=== PATIENT | male | born 1955 | race Caucasian/White ===

== ENCOUNTER → 2021-07-29 | Outpatient (CLI) | payer BC ==
[2021-07-29 14:20] LABS: Basophils # (A) 0.04 X 10*3/uL (0.00-0.10); Basophils % (A) 1.7 %; Eosinophils # (A) 0.18 X 10*3/uL (0.04-0.35); Eosinophils % (A) 7.5 %; HGB 15.4 g/dL (13.0-17.0); Immature Grans, Automated 0 %; Lymphocytes # (A) 0.89 X 10*3/uL (0.90-5.00); Lymphocytes % (A) 36.9 %; MCH 34.8 pg (27.0-32.0); MCHC 34.2 g/dL (32.0-37.0); MCV 101.6 fL (80.0-97.0); Monocytes # (A) 0.28 X 10*3/uL (0.20-1.00); Monocytes % (A) 11.6 %; NRBC Per 100 WBC 0 /100 WBCS (0.0-0.0); Neutrophils # (A) 1.02 X 10*3/uL (1.80-7.70); Neutrophils % (A) 42.3 %; Platelet Count 200 X 10*3/uL (140-440); RBC 4.43 X 10*6/uL (4.40-5.60); RDW 12.5 % (11.5-14.5); WBC 2.41 X 10*3/uL (4.50-10.00)
[2021-07-29 14:27] LABS: African American GFR (CKD) 109.4 (60.0-200.0); Anion Gap 11.4 mmol/L (10.00-18.00); BUN/Creat Ratio 26.63 Ratio (12.00-20.00); Blood Urea Nitrogen 21.3 mg/dL (9.0-27.0); Carbon Dioxide 22.6 mmol/L (20.0-27.5); Non-African American GFR(CKD) 94.4 (60.0-200.0); Potassium 4.1 mmol/L (3.5-5.5)
== END | disposition home or self-care (01) ==
LOC: LABPAT 08:50
PROVIDERS: ATTEND Orthopaedic Surgery
DX: Z01.812 Encounter for preprocedural laboratory examination (principal); M23.92 Unspecified internal derangement of left knee
CPT/HCPCS: 80048; 85025; 93005

== ENCOUNTER 2021-08-08 11:15 | Day surgery (SDC) | payer BC ==
[2021-08-07 08:45] VITALS: BMI 277.4
[~2021-08-08 11:15] MED LIST: HYDROmorphone 0.5 MG/0.5 ML SYRINGE IVP PRN; LACTATED RINGERS 1,000 ML IV SCH; LIDOCAINE 1% (10MG/ML) FOR IV START INTRADERMA PRN; MIDAZOLAM 2 MG/2 ML VIAL IV PRN
[2021-08-08] MEDS ORDERED: ONDANSETRON 4 MG/2 ML VIAL ONE (12:06)
[2021-08-08] MEDS ORDERED: DEXAMETHASONE SOD PHOSPHATE 4 MG/ML 1 ML VIAL IV ONE (12:26)
--- NOTE | 2021-08-08 12:27 | P.HPOR ---
History of Present Illness H&P Date: 08/08/21 Chief Complaint: Lt knee pain, clicking, locking Age: 65 year Height: 6'3" Weight: 220 lbs BMI: 27.50 kg/m2 Occupation: Retired VAS: N/A CHIEF COMPLAINT: Left knee pain DOI: Acute on chronic, no injury or trauma. DOS: None TREATMENTS: Physical Therapy: No Injections: Yes ([facility]) How many? 2 (second administered 04/09/2021) Did they help? yes, found temporary relief. Brace: No Home Spine Exercise Program: yes Supplements guide: yes Health Maintenance Program: yes SUBJECTIVE: Today Mr. Ribera presents via phone call regarding a pre-op review of the planned left arthroscopy with lateral partial meniscectomy, possible medial meniscectomy, synovectomy and possible chondroplasty. Since the time of the last appointment the patient reports that his symptoms have not changed. he reports continued pain about the knee diffusely along with inability to stand or ambulate for extended periods. He reports having failed to improve with all conservative modalities thus far and is ready to proceed with the planned procedure. Patient is ambulating independently. HPI: Mr. Ribera was last seen on 07/09/21 regarding his left knee. Since the time of the last appointments he did report finding 6 weeks worth of relief with the steroid injection administered on 04/09/2021. Aside from this he reports having continued the physician recommended HEP without any improvements. Aside from this he reports that his symptoms have continued to give him issue. Overall he reports no lasting changes to his symptoms with the conservative modalities trialed thus far. He is having continued dysfunction and sleep disturbances due to his symptoms. Patient presents to the office ambulating independently. Mr. Ribera last presented for a follow up evaluation on 04/09/2021 of his left knee. Since the time of the last appointment the patient did have an MRI of the left knee completed on 03/08/2021. As for his symptoms, he notes no notable or discernable changes since 02/17/2021. He reports continuing home exercises but has not changes to symptomology with this. Patient reports continued aggravation of his symptoms with high impact movements like [id number] and walking up and down stairs. Fernandez notes prominent stiffness about the knee when going from [id number] after sitting for an extended periods of time. Otherwise the patient presents to the office without the use of any ambulatory aides. Patient last presented to the office on 02/17/2021 for a follow up evaluation of his left knee. The patient notes that with the injection that he received at the time of the last appointment he had great relief of his symptoms for about a month. More recently, 2 weeks ago he rode on a plane and has had increase posterolateral pain. This more recent pain, he describes, as a "tightness". He denies any radiating pain. His pain is aggravated with high impact movements like squats and walking up and down stairs. Fernandez is still able to workout without significant issues with left knee pain. Patient is currently taking Motrin/Tylenol PRN for symptom management with good effect. Additionally, he presents to the office without the use of any braces or ambulatory aides. Patient is still very active despite the knee pain, working on his horse farm and working out. Mr. Ribera last presented on 01/02/2021 regardingleft knee pain that has been going on for over 6 months. 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 He stated that he was having pain in the back lateral portion of his left knee now for some time states it was worse when he was trying to get up and once he moves around it feels better but at the end of the day he is very sore. He did complain of some clicking feeling of the side of the knee. He stated pain in the back side of the knee on the lateral aspect and this seems to be aggravated when he does back extension type exercises because his legs are hyperextended when he does this. He stated this is somewhat different than what he feels. He localized the pain to the lateral aspect of the knee along the joint line in standard to palpation in this area. Patient denied any fevers chills shortness breath or chest pain at this time Review of Systems 14 points review of systems completed and as stated in HPI, all other systems reviewed are negative. Past Medical History Past Medical History: No Reported History Additional Past Medical History / Comment(s): states erosion on teeth -possible gerd., recent shockwave therapy on his knee by his chiropractor. History of Any Multi-Drug Resistant Organisms: None Reported Past Surgical History: No Surgical Hx Reported Additional Past Anesthesia/Blood Transfusion Reaction / Comment(s): no anesthesia hx Past Psychological History: No Psychological Hx Reported Smoking Status: Never smoker Past Alcohol Use History: None Reported Past Drug Use History: None Reported - Past Family History Mother Family Medical History: No Reported History Medications and Allergies Home Medications Medication Instructions Recorded Confirmed Type Ascorbic Acid [Vitamin C] 6,000 mg PO DAILY 08/07/21 08/07/21 History Astragalus Supplement 1 dose PO DAILY 08/07/21 08/07/21 History Cholecalciferol (Vitamin D3) 250 mcg PO DAILY 08/07/21 08/07/21 History [Vitamin D3 (125 MCG = 5,000 IU)] Fruit & Vegetable Supplement 1 tab PO DAILY 08/07/21 08/07/21 History L.acidoph,Paracasei, B.lactis 2 dose PO DAILY 08/07/21 08/07/21 History [Probiotic] Quercetin 1,000 mg PO DAILY 08/07/21 08/07/21 History Turmeric Root Extract [Turmeric] 2,000 mg PO DAILY 08/07/21 08/07/21 History Ubidecarenone [Co Q-10] 100 mg PO DAILY 08/07/21 08/07/21 History Vitamin A Acetate [Vitamin A] 10,000 unit SL DAILY 08/07/21 08/07/21 History Vitamin E 400 unit PO DAILY 08/07/21 08/07/21 History Zinc 60 mg PO DAILY 08/07/21 08/07/21 History Allergies Allergy/AdvReac Type Severity Reaction Status Date / Time No Known Allergies Allergy Verified 08/07/21 08:13 Physical Examination Osteopathic Statement: *. No significant issues noted on an osteopathic structural exam other than those noted in the History and Physical/Consult. PHYSICAL EXAM: Patient is alert and oriented 3 appears well-nourished well-hydrated is in no acute distress. They do not appear septic. There is TTP over the lateral joint line of the knee with ttp of the fibular head as well as tib fib region. There is palpable mass and swelling in this area as well. Lower extremities with 5 out of 5 strength in all major muscle groups Upper extremities show 5/5 strength in all major muscle groups. There is FROM that is painless of the b/l UE and LE in all major joints. There is pain with prolonged sitting and knee flexion of the Lt knee. They are intact to light touch sensation in L2 to S1 nerve distribution as well as the C5-T1 distribution DTR 2/4 all upper and lower extremities Patient has palpable dorsalis pedis was posterior tibial pulses. Palpable Rad Ulnar pulses b/l Compartments are soft and compressible. Patient shows a negative Homans Cranial nerves II through XII are grossly intact. Special Testing: Positive Apley Positive gisele's on the L Results XRay taken on 11/27/20 of left knee was reviewed by Dr. Henderson and indicates: - Also views of the left knee are reviewed this demonstrates joint space narrowing on the lateral style side more than the medial side however there is moderate arthritic changes throughout the knee tricompartmental. There is subchondral sclerosis noted on the lateral aspect of the joint on the left. There is no fracture or dislocation noted about the left knee. There is somewhat valgus alignment which is noted as well. Tell from the joint appears arthritic moderate in nature. MRI of the left knee from 03/08/2021 indicates: - Large lateral meniscal tear with significant edema noted about the proximal lateral tibial plateau, likely ecnoia to acute injury of the meniscus. Moderate tricompartmental osteoarthritis of the left knee noted as well. No lesions or injuries to tendons noted. Assessment and Plan Assessment: 1. Lateral meniscal tear left knee 2. Lt Knee bone contusion lateral tibial plateau 3. Lt knee moderate osteoarthritis Plan: Orthopedic Surgery Risk Review Fernandez Ribera is a 65 to male presenting for evaluation of onset Lt knee pain, popping clicking and soreness. No defined injury. It was my pleasure to have seen and examined Mr. Ribera. In our visit today we have had a chance to go over subjective complaints, physical examination findings and treatments including the natural course history without intervention and various interventional options. His imaging demonstrates large lateral meniscal tear from posterior horn to the mid body circumferentially with small radial tear as well there is bone marrow edema in the lateral tibial plateau as well as the lateral femoral condyle. On physical exam, Mr. Ribera demonstrates pain with motion of left knee with popping and clicking in the lateral aspect of the left knee lateral joint line tenderness as well as pain in the posterior lateral corner, which is NV intact at this time. I have explained to the patient that this fracture needs stabilization. Based on the patients imaging, physical exam, and the rapid progression and disabling nature of her symptoms, at this time I recommend surgery in the form or a: Left knee arthroscopy with partial lateral meniscectomy possible medial meniscectomy possible synovectomy possible chondroplasty. I discussed the risk and benefits of this procedure at length with Mr. Ribera. Questions were invited and answered, and the patient wishes to proceed as outlined below. Currently, I am recommendin. Left knee arthroscopy with possible partial lateral menisectomy, possible medial menisectomy, possible synovectomy, possible chondroplasty. 2. Review of surgical risks and benefits as well as an educational packet on the proposed surgical procedure. Risks: All surgical procedures come with inherent risks, including those related to positioning, anesthesia, intraoperative findings, and postoperative complications. It is important to understand that surgery does not come with a ny guarantee of a successful outcome as complications and adverse events are always possible. The patient was given a handout discussing the surgical procedure and risks associated with the intervention, both of which were discussed with the patient. These risks include but are not limited to the following: - Experiencing same, different or even worse symptoms compared to before surgery. - Requiring further surgery or other forms of treatment presently or at some time in the future . - On an extreme but fortunately relatively rare basis severe complication such as blindness, stroke, heart attack, temporary and/or permanent nerve injury, paralysis, coma, or may occur, sometimes without known explanation. - Surgical complications may include but are not limited to risk of infection, fluid accumulation in the surgical dissection site, including a seroma or hematoma, that requires additional surgery, wound drainage, bleeding, new numbness or weakness, vision changes/loss, spinal fluid leakage, non-healing and/or infected incision, headaches, difficulty or inability to swallow, hoarseness, hemopneumothorax, pneumothorax, injury to nerves, spinal cord, blood vessels, lymphatics or other vital organs (i.e., bowel injury, injury to the great vessels); heterotopic bone formation; complications related to the hardware such as screws, rods, including misplaced hardware, device failure, hardware fracture/breakage, or hardware loosening; retained surgical instrumentations or devices and the need for further surgery. - Medical risks of the planned surgery include but are not limited to generalized Infections to the whole body or local areas outside of the surgical site (sepsis), heart attack, bleeding, anaphylaxis, meningitis, seizure, epilepsy, hearing loss, burn vasquez, laceration of the head or other areas of the body, bruising, hypersensitivity of the skin, bladder over distension; allergic reaction; shoulder injury related to positioning; fat, blood and air clots to other areas of the body like heart, lungs, brain; failure of internal organs such as lungs, kidneys, liver and excessive bleeding. If blood transfusions are necessary, note that transfusions may cause intolerance reactions such as anaphylaxis or other complex reactions. Despite best efforts, the results of surgery might not heal in terms of bone, soft tissues such as skin, fascia, ligaments, and joints. [facility] has multiple operating rooms with single and overlapping rooms running daily. They currently function under the required guidelines as produced by the [facility] Finance Committee with regards to the overlapping rooms and will continue to comply with changes to this policy as they occur. The requirements include and are complied with as follows: (1) the critical portions of the overlapping rooms will not occur at the same time, (2) the attending physician will be physically present during the critical portions of the procedure and immediately available during the entire case, and (3) a back-up attending is designated should the primary attending not be immediately available. The patient has had a chance to review all the listed information, has been given print outs detailing this information, and has had all his/her questions answered to their satisfaction. It was my pleasure to have seen and examined Mr. Ribera. In our visit today we have had a chance to go over my understanding of our patient's current condition, the natural course history without intervention and various interventional options. Questions were invited and answered, and the patient wishes to proceed as outlined above. I have seen and examined the patient for 25 minutes and we have spent more than 50% of the time in repeat and detailed counseling about the patient's condition, its natural course history with out and as much as can be predicted with surgery and re-review of various surgical treatment options. In conclusion, Mr. Ribera requested we proceed with the above suggested surgery and are willing to accept risks and limitations of the suggested surgery as nature of the disease process and our best attempts at treatment for the condition. Thank you again for allowing us to be part of your patient's care. Please don't hesitate to contact me if you have any further questions. Signed and authenticated by: Avelino Jarrett [facility] [address] [place] [address]
--- NOTE | 2021-08-08 12:28 | P.PN ---
Progress Note - Text Progress Note Date: 08/08/21 History and Physical UPDATE I have seen and examined the patient and reviewed the history and physical. There appear to be no significant changes in the patient's current medical status as outlined in the current History and Physical.
[2021-08-08] MEDS ORDERED: PROPOFOL 10 MG/ML 20 ML VIAL IV ONE (12:30)
[2021-08-08] MEDS ORDERED: LIDOCAINE 1% INJ 10MG/ML (20 ML MDV) ONE (12:30)
[2021-08-08] MEDS ORDERED: MIDAZOLAM 2 MG/2 ML VIAL ONE (12:30)
[2021-08-08] MEDS ORDERED: fentaNYL (PF) 50 MCG/ML 2 ML AMP ONE (12:30)
[2021-08-08] MEDS ORDERED: BUPIVACAINE (PF) 0.5% 30 ML VIAL SQ ONE ×2 (13:07→13:33)
[2021-08-08] MEDS ORDERED: LACTATED RINGERS 1,000 ML IV ONE (13:37)
[2021-08-08 13:52] VITALS: TEMP 97.3
--- NOTE | 2021-08-08 13:59 | P.PN ---
Progress Note - Text Progress Note Date: 08/08/21 Postop: . Patient seen and examined they are doing well. Their pain is under control at this time. They are moving all 4 extremities without any issues. Vital signs are stable.. They are currently recovering and will be transferred to the phase II once deemed stable by the PACU team and anesthesiologist. No Other issues at this time they deny fever chills shortness of breath or chest pain.
[2021-08-08 14:07] VITALS: RESP 16
[2021-08-08 15:21] VITALS: BP 182/103; PULSE 86
== END 2021-08-08 15:36 | disposition home or self-care (01) ==
LOC: EDBD → OR 11:15
PROVIDERS: ATTEND Orthopaedic Surgery
DX: S83.282A Other tear of lateral meniscus, current injury, left knee, initial encounter (principal); S80.02XA Contusion of left knee, initial encounter; K21.9 Gastro-esophageal reflux disease without esophagitis
CPT/HCPCS: 27447; J2250; J1100; J0690; J2405; J2001; J3010; J2704